=== PATIENT | female | born 1990 | race Caucasian/White ===

== ENCOUNTER 2017-05-28 06:55 | Day surgery (SDC) | payer BC ==
[2017-05-26 16:25] VITALS: BP 92/56
[2017-05-28] VITALS (15 sets, daily range): BP systolic 95–126; BP diastolic 51–78
[~2017-05-28] VITALS: Ht 165.1 cm; Wt 55.0 kg
[~2017-05-28 06:55] MED LIST: FOLIC ACID PO; NAPR500T6 PO; ONFI; ZONI100C6 PO; [UNRECOGNIZED DRUG - OTHER] PO; [UNRECOGNIZED DRUG - OTHER] PO
[2017-05-28] MEDS ORDERED: WATER FOR INJECTION,STERILE 20 ML VIAL ONE (08:09)
[2017-05-28] MEDS ORDERED: LACTATED RINGERS 1000ML 1,000 ML IV ONE (08:09)
[2017-05-28] MEDS ORDERED: PROMETHAZINE HCL 25 MG/ML 1ML AMPULE IM ONE (08:18)
[2017-05-28] MEDS ORDERED: MEPERIDINE-PF 25 MG/ML SYG ONE (08:19)
[2017-05-28] MEDS: CEFAZOLIN SODIUM 1 GM VIAL IVP SCH ×2 (08:30→09:35)
[2017-05-28] MEDS ORDERED: DEXAMETHASONE SOD PHOSPHATE 10MG/ML 1ML VIAL ONE (09:23)
[2017-05-28] MEDS ORDERED: GLYCOPYRROLATE 0.2 MG/ML 5 ML VIAL ONE (09:23)
[2017-05-28] MEDS ORDERED: PROPOFOL 10 MG/ML 20ML VIAL IV ONE (09:23)
[2017-05-28] MEDS ORDERED: ONDANSETRON HCL 4 MG/2 ML VIAL ONE (09:23)
[2017-05-28] MEDS ORDERED: FENTANYL CITRATE PF 50 MCG/1 ML 2ML VIAL ONE (09:23)
[2017-05-28] MEDS ORDERED: LIDOCAINE PF 2% 5ML ABBOJECT ONE (09:23)
[2017-05-28] MEDS ORDERED: MIDAZOLAM HCL 1 MG/ML 2ML VIAL ONE (09:23)
[2017-05-28] MEDS ORDERED: LIDOCAINE HCL 2% PF 20 ML JEL DISP.SYRIN MM ONE (09:47)
[2017-05-28] MEDS ORDERED: PHENAZOPYRIDINE HCL 200 MG TABLET ONE (11:12)
== END 2017-05-28 12:05 | disposition home or self-care (01) ==
LOC: DAH 06:55
PROVIDERS: ATTEND Urology
DX: N35.9 Urethral stricture, unspecified (principal); N30.10 Interstitial cystitis (chronic) without hematuria; N32.89 Other specified disorders of bladder; R30.0 Dysuria; G43.909 Migraine, unspecified, not intractable, without status migrainosus; G40.909 Epilepsy, unspecified, not intractable, without status epilepticus; F41.9 Anxiety disorder, unspecified
CPT/HCPCS: 52260; 81025; 96372; A4358; A4510; A4600; A4930; J0690; J1100; J2001; J2175; J2250; J2405; J2550; J2704; J3010; J3490; J7120